=== PATIENT | female | born 1930 | race Caucasian/White ===

== ENCOUNTER 2016-05-27 09:44 | Emergency (ER) | payer MEDICARE, BC ==
[~2016-05-27] VITALS: Ht 170.2 cm; Wt 65.0 kg
[2016-05-27 09:59] VITALS: BP 180/76; PULSE 77; RESP 17; TEMP 98.3; O2SAT 98
[2016-05-27 10:40] VITALS: BP 171/79; PULSE 95; RESP 16; O2SAT 100
[2016-05-27] MEDS ORDERED: ACETAMINOPHEN/HYDROcodone 325 MG/5 MG TAB PO ONE (10:45)
[2016-05-27] MEDS ORDERED: ALPR0.25 PO (10:51)
[2016-05-27] MEDS ORDERED: CLON0.1T PO (10:51)
[2016-05-27] MEDS ORDERED: LOSA100T3 PO (10:51)
[2016-05-27] MEDS ORDERED: BACL10TA PO (10:51)
[2016-05-27] MEDS ORDERED: DILT180C56 PO (10:51)
--- NOTE | 2016-05-27 11:11 | RADRPT ---
EXAM DATE/TIME: 05/27/2016 10:58 [place] COMPARISON: No previous studies available for comparison. INDICATIONS : Right foot pain and swelling, no injury. MEDICAL HISTORY : None. SURGICAL HISTORY : None. ENCOUNTER: Initial ACUITY: 2 days PAIN SCORE: 5/10 LOCATION: Right lateral foot FINDINGS: AP, lateral and oblique views of the right foot were obtained and demonstrate mild osteopenia and nor mal alignment. There are degenerative joint changes greatest involving the second metatarsal tarsal j oint with volar spurring. There is a mild hallux valgus deformity. There is mild soft tissue prominen ce along the lateral foot adjacent to the fifth metatarsal head. There is no destructive change. CONCLUSION: 1. Osteoarthritic change greatest involving the second metatarsal tarsal joint. 2. Osteopenia with no acute fracture. 3. Mild hallux valgus deformity. 4. Mild soft tissue prominence over the lateral foot no underlying bony abnormality. Zack Meyer MD on May 27, 2016 at 11:07 Board Certified Radiologist. This report was verified electronically.
[2016-05-27] MEDS ORDERED: PRED10PA2 PO (11:20)
[2016-05-27] MEDS ORDERED: ULTR50TA5 PO (11:20)
--- NOTE | 2016-05-27 11:21 | PD ---
HPI . Atraumatic right foot pain Chief Complaint: Injury Time Seen by Provider: 10:40 Travel History International Travel<30 days: No Contact w/Intl Traveler<30days: No Traveled to known affect area: No History of Present Illness HPI Patient presents with right foot pain that started last night. No known trauma. She took Advil with minimal relief. She denies previous similar history. PFSH Past Medical History Hypertension: Yes Medical other: Yes (GALLBLADDER PROBLEMS - DIET CONTROLLED ) Tetanus Vaccination: < 5 Years Influenza Vaccination: Yes ?: Not Past Surgical History Surgical History: No Previous Surgery Social History Alcohol Use: No Tobacco Use: No Substance Use: No Allergies-Medications (Allergen,Severity, Reaction): Coded Allergies: No Known Allergies (Unverified , 05/27/16) Reported Meds & Prescriptions Reported Meds & Active Scripts Active Reported Clonidine (Clonidine HCl) 0.1 Mg Tab 0.1 Mg PO BID Losartan-Hydrochlorothiazide 100-12.5 Mg Tab 1 Tab PO DAILY Baclofen 10 Mg Tab 10 Mg PO Q8HR PRN Alprazolam 0.25 Mg Tab 0.25 Mg PO DAILY PRN Diltiazem CD 24 HR 180 Mg Caper 180 Mg PO DAILY Review of Systems Except as stated in HPI: all other systems reviewed are Neg General / Constitutional: No: Fever, Chills Musculoskeletal: Positive: Pain (right foot pain.) Skin: Positive Change in Pigmentation (the skin of the right foot is red. There is a bruise on the plantar aspect of the right foot.) Physical Exam Narrative GENERAL: Elderly appearing woman who is in no acute distress. SKIN: Warm and dry. There is some erythema on the dorsal aspect of the right foot without warmth. HEAD: Atraumatic. Normocephalic. CARDIOVASCULAR: Regular rate and rhythm. RESPIRATORY: No accessory muscle use. MUSCULOSKELETAL: No obvious deformities. No edema. Tender in the right mid foot. NEUROLOGICAL: Awake and alert. No obvious cranial nerve deficits. Motor grossly within normal limits. Normal speech. PSYCHIATRIC: Appropriate mood and affect; insight and judgment normal. Data Data Last Documented VS Vital Signs Date Time Temp Pulse Resp B/P Pulse Ox O2 Delivery O2 Flow Rate FiO2 05/27/16 10:40 95 16 171/79 100 Room Air 05/27/16 09:59 98.3 Orders Foot, Complete ([id number]) (05/27/16 10:40) Acetamin-Hydrocod 325-5 Mg (Coleman 5-325 (05/27/16 10:45) MDM Medical Decision Making Medical Screen Exam Complete: Yes Emergency Medical Condition: Yes Differential Diagnosis Differential diagnosis includes but is not limited to arthritis, plantar fasciitis, incidental trauma, gout Narrative Course Patient presents for evaluation and treatment of atraumatic right foot pain. Right foot x-ray, which was independently viewed by me: CONCLUSION: 1. Osteoarthritic change greatest involving the second metatarsal tarsal joint. 2. Osteopenia with no acute fracture. 3. Mild hallux valgus deformity. 4. Mild soft tissue prominence over the lateral foot no underlying bony abnormality. 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
[2016-05-27 12:04] VITALS: RESP 18
== END 2016-05-27 12:04 | disposition home or self-care (01) ==
LOC: NEPA 09:44
DX: M19.071 Primary osteoarthritis, right ankle and foot (principal); M85.80 Other specified disorders of bone density and structure, unspecified site; I10 Essential (primary) hypertension
CPT/HCPCS: 73630; 99283